=== PATIENT | male | born 1975 | race Two or more races ===

== ENCOUNTER 2023-11-14 11:51 | Emergency (ER) | payer OTHER ==
[~2023-11-14] VITALS: Ht 182.9 cm; Wt 111.1 kg
[2023-11-14] MEDS ORDERED: SYNTHROID50 MCG PO (11:55)
[2023-11-14] MEDS ORDERED: COZAAR50 MG PO (11:55)
[2023-11-14 13:15] LABS: HEMATOCRIT 48.2 % (39.0-48.0); HEMOGLOBIN 16.4 g/dL (13-16.00); MEAN CELL VOLUME 95.9 fL (80.0-100.00); MEAN CORPUSCULAR HEMOGLOBIN 32.5 pg (27.00-32.0); MEAN CORPUSCULAR HGB CONC 33.9 g/dl (32.0-36.0); PLATELET COUNT 272 K/uL (150-450); RED BLOOD COUNT 5.03 M/uL (4.00-6.00); RED CELL DISTRIBUTION WIDTH 14.7 % (11.5-14.5)
[2023-11-14 13:40] LABS: ALBUMIN 3.9 gm/dL (3.4-5.0); BILIRUBIN TOTAL 0.59 mg/dL (0.3-1.2); CALCIUM 9.2 mg/dL (8.5-10.1); CREATININE SERUM 1.04 mg/dL (0.70-1.30); GFR 75.59; GLOBULINA 3.9 G/DL (2.4-3.5); POTASSIUM 4.74 mEq/L (3.5-5.1); TOTAL PROTEIN 7.8 gm/dL (6.4-8.2)
[2023-11-14 13:49] LABS: PH,URINE 7.5 (5.0-8.0); URINE APPEARANCE Clear; URINE BILIRRUBIN Negative (NEGATIVE); URINE BLOOD Negative; URINE COLOR Yellow; URINE GLUCOSE Negative (NEGATIVE); URINE LEUKOCYTE Negative; URINE NITRATE Negative; URINE PROTEIN Negative (NEGATIVE); URINE UROBILINOGEN 0.2 E.U./dl
[2023-11-14 14:11] LABS: URINE BACTERIA 3.7 uL (0.0-1933); URINE EPITHELIAL CELLS 0.7 uL (0.0-38.8); URINE RBC 1.5 uL (0.0-20.8); URINE WBC 1.3 uL (0.0-23.2)
== END 2023-11-14 17:21 | disposition home or self-care (01) ==
LOC: ER 11:53
PROVIDERS: Emergency Medicine
DX: M51.16 Intervertebral disc disorders with radiculopathy, lumbar region (principal); M51.37 Other intervertebral disc degeneration, lumbosacral region; I10 Essential (primary) hypertension

== ENCOUNTER 2024-07-15 11:42 | Emergency (ER) | payer OTHER ==
[~2024-07-15] VITALS: Ht 182.9 cm; Wt 104.3 kg
[~2024-07-15 11:42] MED LIST: COZAAR50 MG PO; SYNTHROID50 MCG PO
[2024-07-15] MEDS ORDERED: CARVEDILOL3.125 M1 PO (12:16)
[2024-07-15] MEDS ORDERED: RAMIPRIL2.5 MG PO (12:16)
[2024-07-15] MEDS ORDERED: TETANUS & DIPHTHERIA TOX,ADULT 0.5 ML VIAL IM ONE (12:45)
[2024-07-15] MEDS ORDERED: CEFTRIAXONE SODIUM 1,000 MG VIAL IM ONE (12:45)
[2024-07-15] MEDS ORDERED: KETOROLAC TROMETHAMINE 60 MG VIAL IM ONE (12:45)
[2024-07-15] MEDS ORDERED: AMOX1TAB5 PO (12:49)
[2024-07-15] MEDS ORDERED: PEPCID AC20 MG PO (12:49)
== END 2024-07-15 13:27 | disposition home or self-care (01) ==
LOC: ER 11:42
DX: S61.512A Laceration without foreign body of left wrist, initial encounter (principal); W45.8XXA Other foreign body or object entering through skin, initial encounter; Y93.89 Activity, other specified; Y92.89 Other specified places as the place of occurrence of the external cause; Y99.8 Other external cause status; I10 Essential (primary) hypertension; E03.8 Other specified hypothyroidism